=== PATIENT | female | born 1975 | race Caucasian/White ===

== ENCOUNTER 2016-09-06 06:01 | Emergency (ER) | payer BC ==
[~2016-09-06] VITALS: Ht 165.1 cm; Wt 94.0 kg
[~2016-09-06 06:01] MED LIST: PRENTAB26 PO
[2016-09-06 06:06] VITALS: TEMP 36.3; Ht 165.1 cm; Wt 94.0 kg
--- NOTE | 2016-09-06 06:57 | EMERGENCY ROOM VISIT NOTE ---
History First contact with patient: 06:09 Chief Complaint: BLEEDING Stated Complaint: SURGERY SITE BLEEDING THROUGH THE BANDAGE Nursing Triage Summary: Patient reports she had foot surgery yesterday and noticed it was bleeding through the dressing last night. Patient woke up and seemed to have more bleeding. Thought it was from ice pack but unsure. History of Present Illness The patient is a 41 year old female who presents to the Emergency Room with complaints of bleeding from an operative incision of her right foot. The patient states that she had a foot fusion and right posterior tibial tendon repair yesterday by Dr. Sarmiento of [facility] in [place]. The patient states that she woke In the middle of the night and noticed bleeding on the dressing. The patient reports the blood soaked through to the Daniele bandage. She reports pain at the incision site which she rates a 3/10. She denies any fevers/chills. She has been taking hydrocodone at home for the pain with relief. Review of Systems A complete 10 point review of systems was reviewed with the patient with pertinent positives and negatives as per history of present illness. All else were negative. Past Medical/Surgical History Medical Problems: (1) Corrective eye surgery (2) HTN (hypertension) (3) Kidney stone (4) Ovarian cyst (5) Ulcer Surgical Problems: (1) H/O spinal fusion (2) History of Family History Diabetes mellitus FH: cancer FH: heart disease Hypertension Seizures Social History Smoking Status: Former Smoker Marital Status: Housing Status: lives with family Occupation Status: employed Current/Historical Medications Scheduled Amphetamine-Dextroamphetamine 10MG (Adderall 10MG), 1.5 TAB PO QAM Amphetamine-Dextroamphetamine 10MG (Adderall 10MG), 1 TAB PO daily at 3pm Aripiprazole (Aripiprazole), 5 MG PO DAILY Buprenorphine (Butrans), 1 PATCH TD WK Celecoxib (Celecoxib), 200 MG PO DAILY Duloxetine HCl (Duloxetine HCl), 90 MG PO QAM Scheduled PRN Baclofen (Baclofen), 10 MG PO TID PRN for Muscle Spasms Lorazepam (Lorazepam), 0.5 MG PO BID PRN for Anxiety Allergies Coded Allergies: No Known Allergies (Unverified , 09/06/16) Physical Exam Vital Signs Date Time Temp Pulse Resp B/P (MAP) Pulse Ox O2 Delivery O2 Flow Rate FiO2 09/06/16 08:03 82 16 164/96 100 09/06/16 06:06 36.3 94 18 156/87 99 Room Air Physical Exam VITALS: Vitals are noted on the nurse's note and reviewed by myself. Vital signs stable. GENERAL: This is a 41-year-old female, in no acute distress, nondiaphoretic, well-developed well-nourished. EXTREMITIES: There is a posterior splint in place on the right lower leg. The dressing is saturated with blood. Removal of the dressing reveals a well- healing surgical incision with no active bleeding. There is no erythema or signs of infection. NEURO: Patient was alert and oriented to person place and time. Medical Decision & Procedures Medical Decision Differential diagnosis includes postoperative infection, wound dehiscence, postoperative hematoma, among others. The patient is a 41-year-old female who presents today complaining of bleeding after a surgery which occurred one day ago. The dressing was removed. The incision is clean and there are no signs of infection. There is a small amount of oozing blood and I feel this is likely secondary to postoperative hematoma. Multiple attempts were made to contact the patient's orthopedic surgeon on-call but we did not receive any calls back. The dressing was replaced and the patient was placed in a splint. Conservative measures were discussed. She was instructed to follow-up with her surgeon for further evaluation and care. After the patient's wound had been dressed and she was being prepared for discharge, the orthopedic surgeon did call back. I spoke with Dr. Sarmiento, who agreed with my assessment and treatment plan and felt that the patient could follow-up in the office this week as scheduled. I did inform the patient of this. Based on the patient's presentation and work up, I feel the patient is stable for outpatient treatment. The patient was educated to return to the emergency department for any worsening of their current condition or new/concerning symptoms. She will follow up with her orthopedic surgeon. Medication reconciliation: I attest that I have personally reviewed the patient 's current medication list. Blood pressure screening: Patient was found to have an elevated blood pressure and was referred to their primary care provider for recheck and further treatment. Impression Primary Impression: Postoperative bleeding from incision Departure Information Dispostion Home / Self-Care Condition GOOD Referrals Kiko Darden D.O. (PCP) Patient Instructions My [facility] Additional Instructions Keep the splint in place until follow-up with orthopedics. Call orthopedics later today to inform them that your incision was bleeding and schedule follow-up. Return to the nearest emergency department with worsening bleeding or any other new/concerning symptoms.
[2016-09-06] MEDS ORDERED: ARIP1TAB14 PO (07:00)
[2016-09-06] MEDS ORDERED: ATV5X PO (07:00)
[2016-09-06] MEDS ORDERED: BUPR10DI TD (07:00)
[2016-09-06] MEDS ORDERED: AMPH10TA2 PO ×2 (07:00)
[2016-09-06] MEDS ORDERED: CYM30 PO (07:00)
[2016-09-06] MEDS ORDERED: CELE1CAP30 PO (07:00)
[2016-09-06] MEDS ORDERED: LRS10 PO (07:00)
[2016-09-06 08:03] VITALS: BP 164/96; PULSE 82; O2SAT 100
[2017-02-10] MEDS ORDERED: PRENTAB26 PO (10:09)
[2017-02-10] MEDS ORDERED: TIZA4CAP PO (10:09)
[2017-02-10] MEDS ORDERED: CHOL200010 (10:09)
== END 2016-09-06 08:04 | disposition home or self-care (01) ==
LOC: C.EDB 06:02 → C.EDA 08:04
DX: T81.89XA Other complications of procedures, not elsewhere classified, initial encounter (principal); Y83.9 Surgical procedure, unspecified as the cause of abnormal reaction of the patient, or of later complication, without mention of misadventure at the time of the procedure; I10 Essential (primary) hypertension; Z87.442 Personal history of urinary calculi; Z83.3 Family history of diabetes mellitus; Z80.9 Family history of malignant neoplasm, unspecified; Z82.49 Family history of ischemic heart disease and other diseases of the circulatory system; Z87.891 Personal history of nicotine dependence; Z79.899 Other long term (current) drug therapy

== ENCOUNTER → 2017-04-24 | Outpatient (CLI) | payer BC ==
[~2017-04-24] MED LIST changes: +AMPH10TA2 PO; +ARIP1TAB14 PO; +ATV5X PO; +BUPR10DI TD; +CELE1CAP30 PO; +CHOL200010; +CYM30 PO; +TIZA4CAP PO
--- NOTE | 2017-04-27 07:41 | MAMMOGRAPHY REPORT ---
BILATERAL FIRST EVER DIGITAL SCREENING MAMMOGRAM TOMOSYNTHESIS WITH CAD: 04/24/2017 CLINICAL HISTORY: Baseline examination. TECHNIQUE: Breast tomosynthesis in addition to standard 2D mammography was performed. Current study was also evaluated with a Computer Aided Detection (CAD) system. COMPARISON: No prior exams were available for comparison. BREAST COMPOSITION: The tissue of both breasts is heterogeneously dense, which may obscure small mas ses. FINDINGS: No suspicious masses, calcifications, or areas of architectural distortion are noted in ei ther breast. A few scattered bilateral benign-appearing calcifications are noted. IMPRESSION: ACR BI-RADS CATEGORY 2: BENIGN There is no mammographic evidence of malignancy. A 1 year screening mammogram is recommended. The pa tient will receive written notification of the results. Approximately 10% of breast cancers are not detected with mammography. A negative mammographic report should not delay biopsy if a clinically suggestive mass is present. Joanie Cowan M.D. ah/:04/24/2017 13:32:52 Broach Grinder: Cinthia ALVES(Jesus)(Sissy), [facility] letter sent: Normal 1/2 BI-RADS Code: ACR BI-RADS Category 2: Benign
== END | disposition home or self-care (01) ==
LOC: C.MAMM 10:56
PROVIDERS: ATTEND Obstetrics & Gynecology
DX: Z12.31 Encounter for screening mammogram for malignant neoplasm of breast (principal)

== ENCOUNTER 2019-11-02 23:43 | Observation (INO) ==
--- NOTE | 2019-11-03 00:16 | Emergency Department Note ---
History of Present Illness General Chief complaint: Abdominal Pain Stated complaint: RIGHT LOWER ABD PAIN Time Seen by Provider: 11/02/19 23:54 Source: patient Mode of arrival: ambulatory Limitations: no limitations History of Present Illness Provider complaint: Right-sided abdominal pain Onset (ago): day(s) 1 Location: abdomen Radiation: back Severity: moderate Pain Consistency: + constant Maximum Pain Intensity: 6 Current Pain Intensity: 6 Quality: + constant Relieved By: + none Exacerbated By: + movement Associated symptoms: + fever/chills, + loss of appetite and + nausea/vomiting; no chest pain and no shortness of breath Treatments prior to arrival: none This is a 44-year-old female who presents from home with complaints of worsening right lower quadrant abdominal pain. Patient states she began having some mild pain yesterday morning which initially was colicky in nature and now is become worse and more constant. Patient rates the pain is worse with movement, worse laying on her left side, and worse standing up straight. Patient states pain is also worse as she attempts to walk or lift her leg to go up and down steps. Patient states she began feeling nauseated yesterday to, the nausea is worse today also though she has not any vomiting. Patient states she has been feeling fevers and chills at home, however the highest temperature she recorded at home was 99.7. Patient denies any recent change in diet or medications. Patient states she did have some mild diarrhea/loose stools yesterday, no black or bloody stools. No other recent change in bowel movements. Patient denies any change in her urine, no pain or difficulty urinating. Patient states she does have chronic low back pain and is recently had her fifth right foot surgery, she does typically use Tylenol and Celebrex at home, and does have tramadol as needed. She states none of these helped her pain. Patient denies any known exposure to any coronavirus positive individual. Patient states she does have a history of an ovarian cyst, which cause similar pain as it ruptured. Patient denies any chance of stating she is currently on her menstrual cycle. Pt seen during a time of high acuity and national emergency pandemic while wearing PPE. Home Medications Home Medications Medication Instructions Recorded Confirmed Type cholecalciferol (vitamin D3) 25 1,000 units PO DAILY 12/21/17 11/03/19 History mcg (1,000 unit) capsule duloxetine 30 mg capsule,delayed 90 mg PO QAM cap 12/21/17 11/02/19 History release multivitamin,fm-zpcu-dnvgnagu 1 tab PO DAILY 12/21/17 11/03/19 History celecoxib 200 mg capsule 200 mg PO DAILY #30 cap 06/21/18 11/02/19 Rx baclofen 10 mg tablet 10 mg PO TID #90 tab 07/22/18 11/02/19 Rx aripiprazole 5 mg tablet 5 mg PO DAILY 05/04/19 11/02/19 History dextroamphetamine-amphetamine 50 mg PO QAM 11/02/19 11/02/19 History [Adderall XR] lisinopril 40 mg PO DAILY 11/02/19 11/02/19 History fluticasone propionate 2 spray INTRANASAL DAILY 11/03/19 11/03/19 History loratadine 10 mg PO DAILY 11/03/19 11/03/19 History Allergies Allergy/AdvReac Type Severity Reaction Status Date / Time No Known Allergies Allergy Verified 11/03/19 00:02 Past Med/Surg History Medical History Abdominal pain, right lower quadrant History of kidney stones Ovarian cyst Urge incontinence of urine Vaginal bleeding Surgical History H/O umbilical hernia repair History of bilateral carpal tunnel release History of History of laparoscopy History of lumbar spinal fusion L3-S1 fusion 2005 S/P bone graft Status post right foot surgery Social History Smoking Status: Never smoker Second Hand Exposure: No; Do You Dip or Chew Tobacco: No; Hx Alcohol Use: No Hx Substance Use: No Preferred Language: [place] Communication Ability: Effective Beliefs That Will Affect Care: None marital status: Current Living Situation: Spouse Other Information That Helps Us Care for You: No Feels Safe at Home: Yes Safety Concerns: Feels Safe At This Time Review of Systems See HPI for pertinent positives & negatives. and A total of 10 systems reviewed and were otherwise negative Physical Exam Vital Signs Vital Signs - 24 hr 11/02/19 23:46 11/03/19 01:19 Temperature 37.5 C Temperature Source Oral Pulse Rate 126 H Pulse Rate [Left Finger] 113 H Respiratory Rate 18 14 Respiratory Effort / Characteristics Non-Labored Spontaneous Respiratory Depth Normal Normal Blood Pressure 140/82 Blood Pressure [Left Arm] 110/70 Blood Pressure Mean 101 Blood Pressure Mean [Left Arm] 83 Pulse Oximetry 97 95 Oxygen Delivery Method Room Air Room Air Sepsis Recent Fever Within 48 Hours No Sepsis New/Unexplained Change in Mental Status N/A Sepsis Action Taken by Nursing No Action Required GENERAL: alert, uncomfortable appearing, well nourished, mild distress, non- toxic EYE EXAM: normal conjunctiva, PERRL and EOM's grossly intact OROPHARYNX: no exudate, no erythema, lips, buccal mucosa, and tongue normal and mucous membranes are moist NECK: supple, no nuchal rigidity, no adenopathy, non-tender LUNGS: Clear to auscultation. Normal chest wall mechanics, no w/r/r HEART: no murmurs, S1 normal and S2 normal ABDOMEN: abdomen soft, tenderness with palpation of the right lower quadrant, pain at McBurney's point, positive Rovsing's, positive psoas, normo-active bowel sounds, no masses, positive rebound tenderness in the right lower quadrant. BACK: Back is symmetrical on inspection and there is no deformity, no midline tenderness, no CVA tenderness. SKIN: no rashes and no bruising UPPER EXTREMITIES: upper extremities are grossly normal. FROM, nml pulses b/l. LOWER EXTREMITIES: No pitting edema. FROM, nml pulses b/l. Right foot in specialized lace up boot. NEURO EXAM: Normal sensorium, cranial nerves II-XII grossly intact, normal speech, no gross weakness of arms, no gross weakness of legs. Gross sensation intact. Course Course 0155: Pt updated on results and plan. Still having pain. 0205: Case discussed with Dr. Boothe. Administered Medications Acetaminophen (Ofirmev) 1,000 mg in 100 mls @ 400 mls/hr IV Q8H PRN PRN Reason: MILD Pain (Scale 1,2,3) Stop: 11/06/19 03:10 Last Infusion: 11/03/19 03:50 Dose: 0 mls/hr Documented by: [id number] Admin: 11/03/19 03:35 Dose: 400 mls/hr Documented by: [id number] Morphine Sulfate (Morphine Sulfate 4 Mg/Ml 1 Ml Carp\Vial) 4 mg IV Q3H PRN PRN Reason: SEVERE Pain (Scale 7,8,9,10) Stop: 11/17/19 03:10 Last Admin: 11/03/19 06:18 Dose: 4 mg Documented by: [id number] Ondansetron HCl (Ondansetron Inj 2 Mg/Ml 2 Ml Vial) 4 mg IV Q4H PRN PRN Reason: Nausea And Vomiting Stop: 12/03/19 03:10 Last Admin: 11/03/19 03:35 Dose: 4 mg Documented by: [id number] Discontinued Medications Fentanyl Citrate (Fentanyl Citrate 100 Mcg/2 Ml Vial) 50 mcg IV Q15M PRN PRN Reason: Pain Stop: 11/17/19 00:17 Last Admin: 11/03/19 00:38 Dose: 50 mcg Documented by: [id number] Sodium Chloride (Nss 1000ml) 1,000 mls @ 125 mls/hr IV .Q8H DEWAYNE Stop: 12/03/19 00:29 Last Infusion: 11/03/19 03:13 Dose: 0 mls/hr Documented by: [id number] Admin: 11/03/19 00:38 Dose: 125 mls/hr Documented by: [id number] Piperacillin Sod/Tazobactam Sod (Zosyn) 4.5 gm in 120 mls @ 240 mls/hr IV NOW ONE Stop: 11/03/19 02:35 Last Infusion: 11/03/19 03:13 Dose: 0 mls/hr Documented by: [id number] Admin: 11/03/19 02:36 Dose: 240 mls/hr Documented by: [id number] Ioversol (Ioversol 100ml) 100 ml IV ONCE ONE Stop: 11/03/19 01:16 Last Admin: 11/03/19 01:15 Dose: 91 ml Documented by: [id number] Morphine Sulfate (Morphine Sulfate 4 Mg/Ml 1 Ml Carp\Vial) 4 mg IV Q2H PRN PRN Reason: Pain Stop: 11/17/19 02:05 Last Admin: 11/03/19 02:36 Dose: 4 mg Documented by: [id number] Ondansetron HCl (Ondansetron Inj 2 Mg/Ml 2 Ml Vial) 4 mg IV NOW STA Stop: 11/03/19 00:19 Last Admin: 11/03/19 00:38 Dose: 4 mg Documented by: [id number] Medical Decision Making Differential Diagnosis Differential diagnoses includes but is not limited to gastritis, peptic ulcer disease, GERD, gallbladder disease, pancreatitis, small bowel obstruction, acute coronary syndrome, pericarditis, ischemic bowel, irritable bowel disease, irritable bowel syndrome, appendicitis, diverticulitis, malignancy, hernia, urinary tract infection, torsion, [/ectopic (if female)], perforation, trauma, infectious. Medical Records Attestation: I reviewed the patient's medical records. Home Medications Current Medication List: was personally reviewed by me Laboratory Data Attestation: I reviewed the patient's lab results. Result diagrams: 11/03/19 00:20 11/03/19 00:20 Lab Results 11/03/19 11/03/19 11/03/19 Range/Units 00:20 00: 00:20 WBC 18.09 H (4.8-10.8) K/uL RBC 4.02 L (4.2-5.4) M/uL Hgb 11.9 L (12.0-16.0) g/dL Hct 36.2 L (37-47) % MCV 90.0 (80-100) fL MCH 29.6 (25-34) pg MCHC 32.9 (32-36) g/dL RDW Std Deviation 44.6 (36.4-46.3) fL RDW Coeff of Jason 13.5 (11.5-14.5) % Plt Count 300 (130-400) K/uL MPV 10.7 H (7.4-10.4) fL Immature Gran % (Auto) 0.2 % Neut % (Auto) 81.6 % Lymph % (Auto) 9.5 % Ritchie % (Auto) 8.4 % Eos % (Auto) 0.2 % Baso % (Auto) 0.1 % Neut # (Auto) 14.77 H (1.4-6.5) K/uL Lymph # (Auto) 1.71 (1.2-3.4) K/uL Ritchie # (Auto) 1.52 H (0.11-0.59) K/uL Eos # (Auto) 0.04 (0-0.5) K/uL Baso # (Auto) 0.01 (0-0.2) K/uL Immature Gran # (Auto) 0.04 H (0.00-0.02) K/uL PT (9.0-12.0) Seconds INR (0.9-1.1) Sodium 135 L (136-145) mmol/L Potassium 3.6 (3.5-5.1) mmol/L Chloride 104 (98-107) mmol/L Carbon Dioxide 25 (21-32) mmol/L Anion Gap 6.0 (3-11) BUN 6 L (7-18) mg/dl Creatinine 0.72 (0.6-1.2) mg/dl Est Cr Clr Drug Dosing 122.7 ml/min Est GFR ( Amer) 119.7 Est GFR (Non-Af Amer) 103.3 BUN/Creatinine Ratio 7.7 L (10-20) Glucose 128 H (70-99) mg/dl Calcium 9.3 (8.5-10.1) mg/dl Total Bilirubin 0.7 (0.2-1) mg/dl AST 54 H (15-37) U/L ALT 58 (12-78) U/L Alkaline Phosphatase 149 H (45-117) U/L Total Protein 7.8 (6.4-8.2) gm/dl Albumin 3.4 (3.4-5.0) gm/dl Globulin 4.4 H (2.5-4.0) gm/dl Albumin/Globulin Ratio 0.8 L (0.9-2) Lipase 57 L (73-393) U/L HCG, Qual Negative (Negative) 11/03/19 Range/Units 00:30 WBC (4.8-10.8) K/uL RBC (4.2-5.4) M/uL Hgb (12.0-16.0) g/dL Hct (37-47) % MCV (80-100) fL MCH (25-34) pg MCHC (32-36) g/dL RDW Std Deviation (36.4-46.3) fL RDW Coeff of Jason (11.5-14.5) % Plt Count (130-400) K/uL MPV (7.4-10.4) fL Immature Gran % (Auto) % Neut % (Auto) % Lymph % (Auto) % Ritchie % (Auto) % Eos % (Auto) % Baso % (Auto) % Neut # (Auto) (1.4-6.5) K/uL Lymph # (Auto) (1.2-3.4) K/uL Ritchie # (Auto) (0.11-0.59) K/uL Eos # (Auto) (0-0.5) K/uL Baso # (Auto) (0-0.2) K/uL Immature Gran # (Auto) (0.00-0.02) K/uL PT 10.6 (9.0-12.0) Seconds INR 1.0 (0.9-1.1) Sodium (136-145) mmol/L Potassium (3.5-5.1) mmol/L Chloride (98-107) mmol/L Carbon Dioxide (21-32) mmol/L Anion Gap (3-11) BUN (7-18) mg/dl Creatinine (0.6-1.2) mg/dl Est Cr Clr Drug Dosing ml/min Est GFR ( Amer) Est GFR (Non-Af Amer) BUN/Creatinine Ratio (10-20) Glucose (70-99) mg/dl Calcium (8.5-10.1) mg/dl Total Bilirubin (0.2-1) mg/dl AST (15-37) U/L ALT (12-78) U/L Alkaline Phosphatase (45-117) U/L Total Protein (6.4-8.2) gm/dl Albumin (3.4-5.0) gm/dl Globulin (2.5-4.0) gm/dl Albumin/Globulin Ratio (0.9-2) Lipase (73-393) U/L HCG, Qual (Negative) Imaging Data Radiologist's Impression: CT abdomen and pelvis with contrast: There is mild fatty infiltration of the liver and hepatomegaly with the liver measuring 18.5 cm craniocaudad. No focal liver lesion is seen. The gallbladder, pancreas, spleen, adrenal glands, and kidneys are unremarkable. There is an inflammatory process in the right lower quadrant central 1.6 cm dilated appendix directed centrally into the pelvis characteristic of acute appendicitis. No abscess or String Top Sealer is identified. There is a 7 mm appendicolith. Bowel loops are otherwise unremarkable. 3.3 cm follicle in the right ovary. The uterus and adnexa otherwise appear unremarkable for the urinary bladder is partially distended. Bone windows demonstrate multilevel lumbar spine fusion from L3-S1. There is severe degenerative changes at L2-3. No fracture or subluxation is seen. Radiologist: Vladimir Lyle MD Blood Pressure Blood Pressure Findings: Normal blood pressure MDM Narrative This is a 44-year-old female who presents the emergency department with right lower quadrant pain and concern for acute appendicitis. Labs are drawn and sent, and patient sent for CT imaging. Patient found to be tachycardic here which she feels mostly related to pain, although possible component of dehydration due to poor p.o. intake with her pain in the last 2 days. Patient found to have a significant leukocytosis. Patient was given pain medication and started on IV fluids while here, was otherwise kept n.p.o. CT did reveal acute appendicitis without perforation or abscess. Case was discussed with the general surgeon on-call. Patient was waiting aware of all results and was in a greement with plan. Patient remained hemodynamically stable in the ER. Patient was given a dose of IV Zosyn after discussion with the surgeon. Patient's other lab work was reassuring. An order was placed for continuous cardiac monitoring. The monitor shows a rate of _109 with sinus tachycardia_ rhythm. Impression & Plan Abdominal pain, Acute appendicitis Discharge Plan Visit Data Chief Complaint: Abdominal Pain Stated Complaint: RIGHT LOWER ABD PAIN ED Provider: Quiana Gutierrez Discharge Problem: Abdominal pain, Acute appendicitis Patient Disposition: Admitted As Inpatient Condition: Good Discharge Instructions Interventions: ED Discharge Assessment Last Done: 11/03/19 02:42 Discharge Problem: Abdominal pain Qualifiers: Abdominal location: right lower quadrant Qualified Code(s): R10.31 - Right lower quadrant pain Acute appendicitis Qualifiers: Acute appendicitis type: with localized peritonitis Appendicitis gangrene presence: without gangrene Appendicitis perforation presence: without pe rforation Appendicitis abscess presence: without abscess Qualified Code(s): K35.30 - Acute appendicitis with localized peritonitis, without perforation or gangrene
[2019-11-03] MEDS ORDERED: ONDANSETRON INJ 2 MG/ML 2 ML VIAL IV STA (00:18)
[2019-11-03] MEDS ORDERED: fentaNYL citrate 100 MCG/2 ML VIAL IV PRN (00:18)
[2019-11-03] MEDS ORDERED: SODIUM CHLORIDE 0.9% 1000ML 1,000 ML IV SCH ×2 (00:30→11:45)
[2019-11-03 00:31] LABS: Basophils # (auto) 0.01 K/uL (0-0.2); Basophils % (auto) 0.1 %; Eosinophils # (auto) 0.04 K/uL (0-0.5); Eosinophils % (auto) 0.2 %; Hematocrit (blood only) 36.2 % (37-47); Hemoglobin 11.9 g/dL (12.0-16.0); Immature Granulocytes # (auto) 0.04 K/uL (0.00-0.02); Immature Granulocytes % (auto) 0.2 %; Lymphocytes # (auto) 1.71 K/uL (1.2-3.4); Lymphocytes % (auto) 9.5 %; Mean Corpuscular Hemoglobin 29.6 pg (25-34); Mean Corpuscular Hgb Conc 32.9 g/dL (32-36); Mean Platelet Volume 10.7 fL (7.4-10.4); Monocytes # (auto) 1.52 K/uL (0.11-0.59); Monocytes % (auto) 8.4 %; Neutrophils # (auto) 14.77 K/uL (1.4-6.5); Neutrophils % (auto) 81.6 %; Platelet Count 300 K/uL (130-400); RDW Coefficient of Variation 13.5 % (11.5-14.5); RDW Standard Deviation 44.6 fL (36.4-46.3); Red Blood Count 4.02 M/uL (4.2-5.4); White Blood Count 18.09 K/uL (4.8-10.8)
[2019-11-03 00:47] LABS: Albumin Level 3.4 gm/dl (3.4-5.0); BUN Creatinine Ratio 7.7 (10-20); Calcium 9.3 mg/dl (8.5-10.1); Creatinine Clr Calc Pharmacy 122.7 ml/min; Est GFR (African American) 119.7; Est GFR (Non-African American) 103.3; Potassium 3.6 mmol/L (3.5-5.1)
[2019-11-03 00:49] LABS: Prothrombin Time 10.6 Seconds (9.0-12.0)
[2019-11-03 00:50] LABS: Albumin Globulin Ratio 0.8 (0.9-2); Bilirubin,Total 0.7 mg/dl (0.2-1); Globulin 4.4 gm/dl (2.5-4.0); Pregnancy Test, Serum Negative (Negative); Total Protein 7.8 gm/dl (6.4-8.2)
[2019-11-03] MEDS ORDERED: IOVERSOL 100ml IV ONE (01:15)
[2019-11-03] MEDS ORDERED: MoRPHine SULFATE 4 MG/ML 1 ML CARP\\VIAL IV PRN ×2 (02:06→03:11)
[2019-11-03] MEDS ORDERED: PIPERACILLIN/TAZOBACTAM 4.5 GM/120 ML BAG IV ONE (02:06)
[2019-11-03] MEDS ORDERED: PIPERACILL/TAZOBAC CONSULT ACTIVE PRN ×2 (02:06→03:11)
[2019-11-03] MEDS ORDERED: DiphenhydrAMINE HCL 50 MG/ML VIAL IV PRN (03:11)
[2019-11-03] MEDS ORDERED: ACETAMINOPHEN 1,000 MG/100 ML VIAL IV PRN (03:11)
[2019-11-03] MEDS ORDERED: ONDANSETRON INJ 2 MG/ML 2 ML VIAL IV PRN ×2 (03:11→08:03)
[2019-11-03] MEDS ORDERED: MoRPHine SULFATE 2 MG/ML CARP IV PRN (03:11)
[2019-11-03] MEDS ORDERED: NEOSTIGMINE METHYLSULFATE 5 MG/5 ML SYR ONE (06:59)
[2019-11-03] MEDS ORDERED: PROPOFOL IV EMULSION 10 MG/ML 20 ML VIAL IV ONE (06:59)
[2019-11-03] MEDS ORDERED: GLYCOPYRROLATE 0.2 MG/ML VIAL ONE (06:59)
[2019-11-03] MEDS ORDERED: LIDOCAINE HCL 2% 2 ML VIAL/AMP(20MG/ML) INFIL ONE (06:59)
[2019-11-03] MEDS ORDERED: DEXAMETHASONE SOD INJ 4 MG/ML VIAL ONE (06:59)
[2019-11-03] MEDS ORDERED: ONDANSETRON INJ 2 MG/ML 2 ML VIAL ONE (06:59)
[2019-11-03] MEDS ORDERED: MIDAZOLAM HCL 1 MG/ML 2ML VIAL ONE (07:00)
[2019-11-03] MEDS ORDERED: fentaNYL citrate 100 MCG/2 ML VIAL ONE ×2 (07:00→09:30)
--- NOTE | 2019-11-03 07:20 | History & Physical Report ---
Date of Service November 03, 2019 Assessment & Plan (1) Acute appendicitis: This is a 44y F with a PMH of HTN, HLD, and anxiety who presents to the [facility] ED on 11/03/19 with right lower abdominal pain. Workup has revealed findings consistent with acute appendicitis via CT scan. WBC 18. On exam patient is tender in the RLQ. We will keep her NPO with IVF and start pre-op abx. She will be placed on the schedule for laparoscopic appendectomy this morning. Patient is agreeable with the plan. Dr. Boothe will be by to obtain surgical consent. Admission and Anticipated Discharge Date Admission Date: November 03, 2019 History of Present Illness Primary Care Provider: Carly Chung DO This is a 44y F with a PMH of HTN, HLD, and anxiety who presents to the [facility] ED on 11/03/19 with right lower abdominal pain. Patient reports she had some dull pain in her right lower abdomen over the past 2 days that has progressively worsened. She endorses + nausea, no vomiting. She presented to the ED due to worsening symptoms. In the ED patient with a WBC of 18, tachycardic to 110-120s, and is afebrile. A CT a/p was obtained that revealed findings concerning for acute appendicitis. Patient says she last tried to eat yesterday early in the day. She reports some diarrhea, chills, and bloating. She denies fevers, chest pain, or shortness of breath. Her abdominal surgical history included an umbilical hernia repair with revision, , and spine fusion through anterior approach. Surgery was consulted for further evaluation. Allergies Allergy/AdvReac Type Severity Reaction Status Date / Time No Known Allergies Allergy Verified 11/03/19 00:02 Home Medications Home Medications Medication Instructions Recorded Confirmed Type cholecalciferol (vitamin D3) 25 1,000 units PO DAILY 12/21/17 11/03/19 History mcg (1,000 unit) capsule duloxetine 30 mg capsule,delayed 90 mg PO QAM cap 12/21/17 11/02/19 History release multivitamin,nj-[id number]-[id number] 1 tab PO DAILY 12/21/17 11/03/19 History celecoxib 200 mg capsule 200 mg PO DAILY #30 cap 06/21/18 11/02/19 Rx baclofen 10 mg tablet 10 mg PO TID #90 tab 07/22/18 11/02/19 Rx aripiprazole 5 mg tablet 5 mg PO DAILY 05/04/19 11/02/19 History dextroamphetamine-amphetamine 50 mg PO QAM 11/02/19 11/02/19 History [Adderall XR] lisinopril 40 mg PO DAILY 11/02/19 11/02/19 History fluticasone propionate 2 spray INTRANASAL DAILY 11/03/19 11/03/19 History loratadine 10 mg PO DAILY 11/03/19 11/03/19 History Past Med/Surg History Medical History Abdominal pain, right lower quadrant History of kidney stones Ovarian cyst Urge incontinence of urine Vaginal bleeding Surgical History H/O umbilical hernia repair History of bilateral carpal tunnel release History of History of laparoscopy History of lumbar spinal fusion L3-S1 fusion 2005 S/P bone graft Status post right foot surgery Social History Smoking Status: Never smoker Second Hand Exposure: No; Do You Dip or Chew Tobacco: No; Hx Alcohol Use: No Hx Substance Use: No Preferred Language: Togolese Communication Ability: Effective Beliefs That Will Affect Care: None marital status: Current Living Situation: Spouse Other Information That Helps Us Care for You: No Feels Safe at Home: Yes Safety Concerns: Feels Safe At This Time Review of Systems Constitutional: + chills; no fever Respiratory: no dyspnea Cardiovascular: no chest pain Gastrointestinal: + abdominal pain (right lower abdomen), + bloating, + nausea and + diarrhea/loose stools; no vomiting Genitourinary: no urinary complaints Physical Exam Physical Exam: awake/alert Respiratory: normal respiratory effort Gastrointestinal (Abdomen): Inspection/Auscultation: + abdomen distended and + abdominal surgical scar (from prior surgeries, well healed) Percussion/Palpation: + abdomen tender (ttp RLQ) and + abdomen firm Results & Data Results & Data ([facility]) Vital Signs (Past 12 Hours) Vital Signs Temp Pulse Pulse Resp BP BP Pulse Ox 11/03/19 03:05 37.1 C 113 H 15 115/68 95 11/03/19 02:42 84 14 109/59 L 95 11/03/19 01:19 113 H 14 110/70 95 11/02/19 23:46 37.5 C 126 H 18 140/82 97 Code Status & VTE Plan VTE Prophylaxis Plan VTE Prophylaxis will be ordered: Yes Supervising Physician Co-Signing Physician Notes Patient seen and examined, labs and imaging reviewed, agree with above. 44-year-old female with worsening abdominal pain over the past 2 to 3 days presented to the emergency department overnight. CT scan was consistent with acute nonperforated appendicitis and she is admitted with plans for surgery this morning. On exam she is afebrile with slight tachycardia but otherwise stable vitals. On exam she is tender to palpation in the right lower quadrant with localized guarding. White blood cell count 18 overnight otherwise labs unremarkable. CT with dilated and inflamed appendix, but no evidence of perforation. Acute appendicitis Plan for laparoscopic appendectomy, possible open The risks of the procedure were discussed to include but not limited to bleeding, infection, open surgery, normal appendix, damage to surrounding structures, need for future more extensive surgery, abscess, and the risk of anesthesia Patient on Zosyn Likely discharge this afternoon Wound care instructions and activity restrictions reviewed Follow-up in general surgery clinic in 2 weeks The diagnosis, details the procedure and recovery, and plan of care were discussed with the patient, all questions were answered, the patient expressed understanding and agrees the plan of care as stated PG Care Time/CCT Total # of Minutes Spent Total Time Spent with Patient: Total time spent is greater than 50% in coordination of care (as documented) at patient's floor/unit and/or counseling patient: Coding Level of Care Code 54932 [facility] Care - Level 3 Diagnoses Acute appendicitis K35.80
--- NOTE | 2019-11-03 07:54 | CT Scan Report ---
CT abd pelvis IV con only CT DOSE: 1257.77 mGy.cm HISTORY: Pain. Nausea. RLQ pain TECHNIQUE: Multiaxial CT images of the abdomen and pelvis were performed following the use of intrave nous contrast. A dose lowering technique was utilized adhering to the principles of ALARA. COMPARISON STUDY: None. FINDINGS: Lung bases are clear. The liver spleen and pancreas are unremarkable. There is minimal cortical scarring of the kidneys bilaterally. There is no evidence for renal hydrone phrosis. The upper abdominal bowel pattern is nonobstructive. There is diffuse inflammatory process involving the root of the mesentery and extending to the right lower quadrant. This extends or erosion or large geographic area with mild reactive wall thickening o f several loops of colon as well as small bowel. There is a poorly defined 6.5 mm appendicolith. The appendix is poorly defined but appears to be dist ended to 1.6 cm. This is suggestive of appendicitis. There is moderate reactive mesenteric adenopathy. Bladder is midline. There are bilateral ovarian cysts. IMPRESSION: 1. Diffuse inflammatory process of the right lower quadrant extending to the root of the mesentery. 2. Distended appendix to 1.6 cm with the appearance suggestive of acute appendicitis. 3. No evidence for drainable abscess or collection, although the appearance is suggestive of a potent ial developing phlegmon type process. 4. Bilateral ovarian cysts. ACT 112: Negative or not required by law. The above report was generated using voice recognition software. It may contain grammatical, syntax or spelling errors. Electronically signed by: Mynor Renee M.D. 11/03/2019 7:53 AM
--- NOTE | 2019-11-03 08:01 | Anesthesiology Consultation ---
Date of Service November 03, 2019 Assessment & Plan Chart Review Chart Review: Acceptable Risk for Surgery Consults Requested none History Surgery Operation Date: 11/03/19 07:35 Proposed Procedures p Laparoscopic Appendectomy - Adriel Boothe DO, FACS Height/Weight Height: 5 ft 6.5 in Weight: 103.1 kg Allergies Allergy/AdvReac Type Severity Reaction Status Date / Time No Known Allergies Allergy Verified 11/03/19 00:02 Medications Home Medications Medication Instructions Recorded Confirmed Last Taken cholecalciferol (vitamin D3) 25 1,000 units PO DAILY 12/21/17 11/03/19 Unknown mcg (1,000 unit) capsule duloxetine 30 mg capsule,delayed 90 mg PO QAM cap 12/21/17 11/02/19 Unknown release multivitamin,[id number] 1 tab PO DAILY 12/21/17 11/03/19 Unknown celecoxib 200 mg capsule 200 mg PO DAILY #30 cap 06/21/18 11/02/19 Unknown baclofen 10 mg tablet 10 mg PO TID #90 tab 07/22/18 11/02/19 Unknown aripiprazole 5 mg tablet 5 mg PO DAILY 05/04/19 11/02/19 Unknown dextroamphetamine-amphetamine 50 mg PO QAM 11/02/19 11/02/19 Unknown [Adderall XR] lisinopril 40 mg PO DAILY 11/02/19 11/02/19 Unknown fluticasone propionate 2 spray INTRANASAL DAILY 11/03/19 11/03/19 Unknown loratadine 10 mg PO DAILY 11/03/19 11/03/19 Unknown Active Medications Generic Name Dose Route Start Last Admin Trade Name Freq PRN Reason Stop Dose Admin Acetaminophen 1,000 mg in 100 mls @ 400 mls/hr 11/03/19 03:11 11/03/19 03:50 Ofirmev IV 11/06/19 03:10 Infused Q8H PRN Infusion MILD Pain (Scale 1,2,3) Morphine Sulfate 4 mg 11/03/19 03:11 11/03/19 06:18 Morphine Sulfate 4 Mg/Ml 1 Ml Carp\Vial IV 11/17/19 03:10 4 mg Q3H PRN Administration SEVERE Pain (Scale 7,8,9,10) Ondansetron HCl 4 mg 11/03/19 03:11 11/03/19 03:35 Ondansetron Inj 2 Mg/Ml 2 Ml Vial IV 12/03/19 03:10 4 mg Q4H PRN Administration Nausea And Vomiting NPO Date Last Intake of Fluids: 11/02/19 Time Last Intake of Fluids: 19:00 Date Last Intake of Solids: 11/02/19 Time Last Intake of Solids: 08:00 Past Medical History Medical History Abdominal pain, right lower quadrant History of kidney stones Ovarian cyst Urge incontinence of urine Vaginal bleeding Past Surgical History Surgical History H/O umbilical hernia repair History of bilateral carpal tunnel release History of History of laparoscopy History of lumbar spinal fusion L3-S1 fusion 2005 S/P bone graft Status post right foot surgery Social History Smoking Status: Never smoker Do You Dip or Chew Tobacco: No Hx Alcohol Use: No Hx Substance Use: No substance use type: does not use Physical Exam Vital Signs Last Vital Signs Temp 37.2 C 11/03/19 07:23 Pulse 104 H 11/03/19 07:23 Resp 16 11/03/19 07:23 BP 111/70 11/03/19 07:23 Pulse Ox 94 11/03/19 07:23 Testing Laboratory Results 11/03/19 00:20 11/03/19 00:20 PT 10.6 Seconds (9.0-12.0) 11/03/19 00:30 INR 1.0 (0.9-1.1) 11/03/19 00:30
[2019-11-03] MEDS ORDERED: BUPIVACAINE 0.5 % 5 MG/1 ML MPF 30ML VIAL ONE (08:02)
[2019-11-03] MEDS ORDERED: HYDROmorphone INJ 2 MG/ML SYR/VIAL IV PRN (08:03)
[2019-11-03] MEDS ORDERED: PROMETHAZINE HCL 12.5 MG in SODIUM CHLORIDE 0.9% 50 ML IV PRN (08:03)
[2019-11-03] MEDS ORDERED: METOCLOPRAMIDE HCL INJ 5 MG/ML 2 ML VIAL IV PRN (08:03)
[2019-11-03] MEDS ORDERED: ATROPINE SULFATE 0.1 MG/ML 10ML SYR IV PRN (08:03)
[2019-11-03] MEDS ORDERED: ePHEDrine sulfate 50 MG/ML AMP IV PRN (08:03)
[2019-11-03] MEDS: PIPERACILLIN/TAZOBACTAM 3.375 GM in DEXTROSE 5% 100 ML IV SCH ×2 (08:10→15:57)
--- NOTE | 2019-11-03 09:34 | Operative Report ---
PG Post Operative Report Pre & Post Diagnosis Operation Date: 11/03/19 07:35 Pre-Op Diagnosis: APPENDICITIS Post-Op Diagnosis: APPENDICITIS +ADHESIONS I identified the patient and participated in the time-out.: Yes Procedure Operation Date: 11/03/19 07:35 Actual Procedures p Laparoscopic Appendectomy, Lysis of Adhesions(Not Applicable) - Adriel anderson DO, CAM Surgeon Adriel Boothe DO, CAM Delinquent Tax Collection Assistant Kike Iglesias Estimated Blood Loss 10 Findings Consistent with Post-Op Diagnosis Laparoscopic lysis of adhesions performed of omental adhesions to abdominal wall at site of prior umbilical hernia repair. Significantly inflamed appendix with no evidence of perforation. Appendectomy performed, good hemostasis. Specimens Appendix Complications none Disposition Accompanied Patient To Recovery: No Disposition: Recovery Room Indications 44-year-old female with 72 hours of abdominal pain presented to the emergency department where she had a CT scan that showed acute nonperforated appendicitis. Patient was admitted to the floor with antibiotics and plan for laparoscopic appendectomy, possible open. The risks of the procedure were discussed, all questions were answered, and the patient agreed to proceed with surgery as planned. Description of Procedure The patient was properly identified, consented, and taken to the operating room where she was placed in the supine position. General endotracheal anesthesia was induced. SCDs and a safety belt were placed. Preoperative antibiotics were administered. A Raymond catheter was not placed. The patient's abdomen was prepped and draped in the standard sterile fashion. Surgical timeout was performed and all parties were in agreement that this was the correct patient and procedure to be performed and we continued as planned. The patient had a prior umbilical hernia repair so we performed a Veress needle entry. An incision was made in the left upper quadrant and the Veress needle was inserted. Saline drop test confirmed entry into the peritoneum. The abdomen was insufflated with carbon dioxide which the patient tolerated without incident. The abdomen was then entered using the Optiview technique and a 5 mm trocar. The laparoscope was inserted and no damage from initial trocar or Veress needle placement was noted. There were omental adhesions to the anterior abdominal wall at the site of prior umbilical hernia repairs. A 5 mm port was placed in the suprapubic position care not to damage the bladder. To assist with the lysis of adhesions, a 5 mm port was placed in the right lower quadrant. Using blunt dissection and the harmonic scalpel we were able to perform a laparoscopic lysis of adhesions from the omentum to the anterior abdominal wall. Hemostasis was good. The abdomen was explored and no gross abnormalities were noted within the 4 quadrants of the abdomen. A 12 mm port was then placed in the left lower quadrant. The patient was placed in Trendelenburg position and rotated towards the left. The small bowel was swept away from the right lower quadrant. Portions of the distal ileum were adherent to the cecum and right lower quadrant. These were swept away using blunt dissection. The cecum was grasped withan atraumatic grasper exposing the appendix. The appendix was significantly inflamed with fibrinous exudate, but there was no evidence of perforation. Blunt dissection was used to free the appendix from the surrounding fat and tissue. We performed this from the tip working proximally to the base. A window was created between the base of the appendix and the mesoappendix. A bird loaded endoscopic stapler was then used to divide the appendix at its base. The harmonic scalpel was then used to divide the mesoappendix. Hemostasis was good. The appendix was placed in an Endo Catch bag and removed through the umbilical port site. The right lower quadrant and pelvis was irrigated and hemostasis was found to be good. Haresh-Osmin device was used to close the left lower quadrant port site incision fascia with 0 Vicryl. 5 mm trochars were removed under direct visualization and the abdomen was allowed to collapse. The wound was irrigated, and the skin of all ports was closed with 4-0 Monocryl subcuticular sutures. Dermabond was placed over the wounds. The patient was extubated in the operating room and taken to the PACU where she recovered without apparent incident. All sponge, instrument and needle counts were correct at the conclusion of the procedure. The patient tolerated the procedure well. Kim Iglesias, the physician's butcher's assistant was present and scrubbed for the entirety of the case. She was critical in positioning the patient, prepping and draping, retraction and exposure, driving the laparoscope, removal of the appendix, closure the incisions, and placement of the dressings. I attest to the content of the Intraoperative Record and any orders documented therein. Any exceptions are noted below.
[2019-11-03] MEDS: fentaNYL citrate 100 MCG/2 ML VIAL IV PRN ×2 (10:01→10:09)
--- NOTE | 2019-11-03 10:28 | Anesthesiology Progress Note ---
Date of Service November 03, 2019 Anesthesia Post Procedure Vital Signs Vital Signs: Temp Pulse Pulse Pulse Resp BP BP 11/03/19 10:15 36.6 C 91 H 18 97/60 L 11/03/19 10:05 94 H 21 111/66 11/03/19 09:55 94 H 24 108/68 11/03/19 09:47 36.6 C 108 H 23 111/54 L 11/03/19 07:44 37.5 C 100 H 16 99/64 L 11/03/19 07:23 37.2 C 104 H 16 111/70 11/03/19 03:05 37.1 C 113 H 15 115/68 11/03/19 02:42 84 14 109/59 L 11/03/19 01:19 113 H 14 110/70 11/02/19 23:46 37.5 C 126 H 18 140/82 Pulse Ox 11/03/19 10:15 97 11/03/19 10:05 97 11/03/19 09:55 99 11/03/19 09:47 93 11/03/19 07:44 97 11/03/19 07:23 94 11/03/19 03:05 95 11/03/19 02:42 95 11/03/19 01:19 95 11/02/19 23:46 97 Pain Intensity Right Abdomen: Pain Intensity: 6 Abdomen: Pain Intensity: 5 Transfer of Care Handoff Completed per policy Notes Mental Status: alert / awake / arousable and participated in evaluation Patient Amnestic to Procedure: Yes Nausea / Vomiting: adequately controlled Pain: adequately controlled Airway Patency, RR, SpO2: stable & adequate BP & HR: stable & adequate Hydration State: stable & adequate Anesthetic Complications: no major complications apparent
--- NOTE | 2019-11-03 11:45 | Surgery Progress Note ---
Date of Service November 03, 2019 Assessment & Plan (1) Acute appendicitis: (2) S/P laparoscopic appendectomy: Admission and Anticipated Discharge Date Admission Date: S/P laparoscopic appendectomy this AM. Feeling well. Discussed increasing diet and ambulating. Post-op restrictions reviewed. Will follow, if tolerating PO diet may d/c home later today. Subjective Patient resting comfortably. Tolerating clear liquids. Denies N/V. Has not passed gas or voided. Pain is well controlled. Physical Exam Gastrointestinal (Abdomen): abd soft, appropriately tender, incisions CDI- no evidence of bleeding or infection Results & Data ([facility]) Vital Signs (Past 12 Hours) Vital Signs Temp Pulse Pulse Pulse Resp BP BP 11/03/19 11:33 99/64 L 11/03/19 11:30 36.8 C 84 16 93/61 L 11/03/19 11:03 36.7 C 89 16 100/65 11/03/19 10:35 36.7 C 95 H 18 102/67 11/03/19 10:15 36.6 C 91 H 18 97/60 L 11/03/19 10:05 94 H 21 111/66 11/03/19 09:55 94 H 24 108/68 11/03/19 09:47 36.6 C 108 H 23 111/54 L 11/03/19 07:44 37.5 C 100 H 16 99/64 L 11/03/19 07:23 37.2 C 104 H 16 111/70 11/03/19 03:05 37.1 C 113 H 15 115/68 11/03/19 02:42 84 14 109/59 L 11/03/19 01:19 113 H 14 110/70 11/02/19 23:46 37.5 C 126 H 18 140/82 Pulse Ox 11/03/19 11:33 11/03/19 11:30 93 11/03/19 11:03 94 11/03/19 10:35 96 11/03/19 10:15 97 11/03/19 10:05 97 11/03/19 09:55 99 11/03/19 09:47 93 11/03/19 07:44 97 11/03/19 07:23 94 11/03/19 03:05 95 11/03/19 02:42 95 11/03/19 01:19 95 11/02/19 23:46 97 PG Care Time/CCT Total # of Minutes Spent Total Time Spent with Patient: Total time spent is greater than 50% in coordination of care (as documented) at patient's floor/unit and/or counseling patient: Coding Level of Care Code None Diagnoses Acute appendicitis K35.30 Acute appendicitis type: with localized peritonitis Appendicitis abscess presence: without abscess Appendicitis gangrene presence: without gangrene Appendicitis perforation presence: without perforation S/P laparoscopic appendectomy Z90.49 (1) Acute appendicitis Acute appendicitis type: with localized peritonitis Appendicitis abscess presence: without abscess Appendicitis gangrene presence: without gangrene Appendicitis perforation presence: without perforation Qualified Code(s): K35.30 - Acute appendicitis with localized peritonitis, without perforation or gangrene
[2019-11-03] MEDS ORDERED: BACLOFEN 10 MG TAB PO SCH (14:00)
--- NOTE | 2019-11-04 06:13 | Electrocardiogram Report ---
Test Reason : Blood Pressure : / mmHG Vent. Rate : 111 BPM Atrial Rate : 111 BPM P-R Int : 134 ms QRS Dur : 078 ms QT Int : 330 ms P-R-T Axes : 043 047 050 degrees QTc Int : 448 ms Sinus tachycardia Otherwise normal ECG No previous ECGs available Confirmed by Christian Ballard ([id number]) on 11/04/2019 6:12:52 AM Referred By: REFERRED SELF Confirmed By:Christian Ballard
[2019-11-04] MEDS ORDERED: lisinopriL 40 MG TAB PO SCH (09:00)
[2019-11-04] MEDS ORDERED: DEXTROAMPHETAMINE/AMPHETAMINE ER 10 MG CAP PO SCH (09:00)
[2019-11-04] MEDS ORDERED: CEROVITE ADV FORMULA TAB PO SCH (09:00)
[2019-11-04] MEDS ORDERED: AMPHETAMINE ASP/SULF/DEXTRAMPH ER 20 MG CAP PO SCH (09:00)
[2019-11-04] MEDS ORDERED: CHOLECALCIFEROL 1,000 UNITS 25 MCG TAB PO SCH (09:00)
[2019-11-04] MEDS ORDERED: CeleBREX 200 MG CAP PO SCH (09:00)
[2019-11-04] MEDS ORDERED: LORATADINE 10 MG TAB PO SCH (09:00)
--- NOTE | 2019-11-07 13:56 | Discharge Summary ---
Date of Service November 07, 2019 Admission HPI Per Admitting Provider This is a 44y F with a PMH of HTN, HLD, and anxiety who presents to the [facility] ED on 11/03/19 with right lower abdominal pain. Patient reports she had some dull pain in her right lower abdomen over the past 2 days that has progressively worsened. She endorses + nausea, no vomiting. She presented to the ED due to worsening symptoms. In the ED patient with a WBC of 18, tachycardic to 110-120s, and is afebrile. A CT a/p was obtained that revealed findings concerning for acute appendicitis. Patient says she last tried to eat yesterday early in the day. She reports some diarrhea, chills, and bloating. She denies fevers, chest pain, or shortness of breath. Her abdominal surgical history included an umbilical hernia repair with revision, , and spine fusion through anterior approach. Surgery was consulted for further evaluation. Principal Diagnosis acute appendicitis Discharge Exam awake/alert Gastrointestinal (Abdomen) Inspection/Auscultation: + abdominal surgical incision (c/d/i with dermabond overtop) Percussion/Palpation: + abdomen tender (appropriately ttp lily-incisionally) and abdomen soft Discharge Data Allergies Allergy/AdvReac Type Severity Reaction Status Date / Time No Known Allergies Allergy Verified 11/03/19 00:02 Consultations 11/03/19 02:07 ED Decision to Admit Stat Procedures Performed Operation Date: 11/03/19 07:35 Actual Procedures p Laparoscopic Appendectomy, Lysis of Adhesions(Not Applicable) - Adriel Boothe DO, FACS Ordered Studies 11/03/19 00:16 CT abd pelvis IV con only Urgent Hospital Course (1) S/P laparoscopic appendectomy: This is a 44y F who presented to the [facility] ED on 11/03/19 with complaints of right lower quadrant abdominal pain. Workup in the ED with a CT a/p revealed findings consistent of acute appendicitis. WBC 18. She was kept NPO with IVF and started on IV abx. Patient agreeable to surgical intervention. On 11/02 the patient went to the OR with Dr. Boothe for a laparoscopic appendectomy. The patient tolerated the procedure well, see op note for full details. The patient recovered on the surgical floor. Diet was advanced as tolerated and pain remained well controlled. On the evening of 11/02 she was deemed stable for discharge to home. She was given instructions to follow up in surgical clinic within 1-2 weeks for a post op check. Patient expressed understanding. Total Time Total Time Spent Total Time Spent (In Minutes): 10 Discharge Plan Discharge Items Patient Disposition: Home - Self-Care Reason For Visit: APPENDICITIS Discharge Diagnosis: laparoscopic appendectomy Condition on Discharge: Good Activity: Per Instructions section Lifting Comment: no more than 20 pounds Bathing Comment: may shower starting 11/04/19; no soaking in tubs/pools Exercise/Sports: Wait until after follow-up appointment Driving/Machine Use: do not resume driving while taking narcotics for pain Non-emergency contact: Surgeon Call non-emergency contact if: you have any medication questions, your symptoms worsen, your pain is not controlled, your pain is worsening, your pain is unusual for you, your pain is concerning for you, your temperature is above 101.5, your wound has increased redness, your wound has increased drainage and your wound pain has increased Follow-up/Referrals: Adriel Boothe DO, FACS [Physician] - (Please call to schedule follow up in the office within 1-2 weeks) Carly Chung DO [Primary Care Provider] - Diet: Regular Addtl Attending Provider Instructions: Pending Studies at Discharge: Yes Studies:: surgical pathology Stand-Alone Forms: My [facility] coin4ce, Smoking Cessation Medications and DC Order Prescriptions: New oxycodone-acetaminophen [Percocet] 5-325 mg tablet 1 - 2 tab PO .q4-6h PRN (Reason: pain, for initial therapy, max 6 tabs per day) Qty: 15 RF: 0 Continued duloxetine [Cymbalta] 30 mg capsule,delayed release(DR/EC) 90 mg PO QAM RF: 0 multivitamin,[id number] [Complete Multivitamin] tablet 1 tab PO DAILY RF: 0 cholecalciferol (vitamin D3) 1,000 unit capsule 1,000 units PO DAILY RF: 0 celecoxib [Celebrex] 200 mg capsule 200 mg PO DAILY Qty: 30 RF: 2 baclofen 10 mg tablet 10 mg PO TID Qty: 90 RF: 2 aripiprazole [Abilify] 5 mg tablet 5 mg PO DAILY RF: 0 dextroamphetamine-amphetamine [Adderall XR] 25 mg capsule,extended release 24hr 50 mg PO QAM RF: 0 lisinopril 40 mg tablet 40 mg PO DAILY RF: 0 fluticasone propionate 50 mcg/actuation spray,suspension 2 spray INTRANASAL DAILY RF: 0 loratadine 10 mg tablet 10 mg PO DAILY RF: 0 Discharge Orders: Discharge Order (Routine); Ordered 11/03/19 Ordered By: Angeline Love Admission Data Admit Date/Time: 11/03/19 02:22 Attending Provider: Adriel Boothe Admit Provider: Adriel Boothe Primary Care Provider: Carly Chung Other Providers: Adriel Boothe Other Interventions: Discharge Summary Assessment (RN) Last Done: 11/03/19 17:18 Coding Level of Care Code D/C Day Management <30 mins Diagnoses S/P laparoscopic appendectomy Z90.49
== END 2019-11-03 18:20 | disposition home or self-care (01) ==
LOC: ED 23:43 → 3W 11-03 02:22 → INTOOBSV 11-03 02:22 → 3W 11-03 02:42